=== PATIENT | female | born 1980 | race Caucasian/White ===

== ENCOUNTER 2017-03-08 06:21 | Day surgery (SDC) | payer OTHER ==
[~2017-03-08] VITALS: Ht 167.6 cm; Wt 82.0 kg
--- NOTE | 2017-03-13 07:54 | OR ---
ADMIT: 03/08/2017 RM/LOC: [facility] MR#: [id number] [id number] DAMONYAYO Alicia [address] [place] [address] Operative/Delivery Room Report SEX: F AGE: 36 : 1980 SURGERY DATE: 03/08/2017 SURGEON: Bryson Madrigal MD PREOPERATIVE DIAGNOSIS: Chronic cholecystitis. POSTOPERATIVE DIAGNOSIS: Chronic cholecystitis. PROCEDURE: Laparoscopic cholecystectomy. [employer] MECHANIC: ROBYN Hager whose assistance was necessary for laparoscopic visualization and tissue retraction. ANESTHESIA: General. ESTIMATED BLOOD LOSS: 10 mL. DESCRIPTION OF PROCEDURE: The patient was taken to the operating room and placed supine on the operating room table. General anesthesia was established. The abdomen was prepped and draped in the standard surgical fashion. A 5 mm infraumbilical incision was made in the skin. The fascia was grasped with a Marco clamp, and a Veress needle was advanced into the peritoneal cavity. Carbon dioxide was used to insufflate the abdomen to 15 mmHg pressure. The Veress needle was withdrawn, and a 5 mm Optiview trocar was placed. Next, an 11 mm subxiphoid port and 2 right lateral 5 mm ports were placed under visualization. The gallbladder was retracted cephalad. There were numerous adhesions to the gallbladder edge, consistent with chronic cholecystitis. These were carefully taken down with cautery to Calot's triangle. The cystic duct was skeletonized and the view of safety was obtained. The cystic duct was doubly clipped distally, singly clipped proximally, and divided. The cystic artery was skeletonized, doubly clipped ADMIT: 03/08/2017 RM/LOC: [facility] MR#: [id number] [place] [address] [place] [id number] YAYO JOSE [address] [place] [address] Operative/Delivery Room Report SEX: F AGE: 36 : 1980 proximally, singly clipped distally, and divided. The gallbladder was excised from the gallbladder fossa with Bovie cautery. It was placed in an EndoCatch bag and removed through the subxiphoid port site. The right upper quadrant was irrigated. There was no evidence of bleeding. No evidence of bile leak, and the clips remained intact on the cystic duct and artery. The ports were removed under visualization without evidence of bleeding. The fascial margin at the 11 mm port site was approximated with True suture passer and at 0 Vicryl tie. The abdomen was allowed to deflate. Skin edges were approximated with 4-0 Monocryl in a subcuticular fashion and Dermabond. Local anesthetic was injected at the incisions. Sponge, needle, and instrument counts were correct at the end of the case. The patient tolerated the procedure well and transferred to the recovery area in stable condition. Bryson Madrigal MD/ rodney JOB #: [id number] CC: Bryson Madrigal, Attending Physician Penny Donald, Family Physician
== END 2017-03-08 12:40 | disposition home or self-care (01) ==
LOC: SSS 06:21
PROC: 0FT44ZZ Resection of Gallbladder, Percutaneous Endoscopic Approach (ICD-10-PCS; principal; 2017-03-08)
DX: K82.4 Cholesterolosis of gallbladder (principal); K21.9 Gastro-esophageal reflux disease without esophagitis; E78.5 Hyperlipidemia, unspecified; Z88.1 Allergy status to other antibiotic agents; Z90.49 Acquired absence of other specified parts of digestive tract; Z98.890 Other specified postprocedural states